=== PATIENT | male | born 1990 | race African-American/Black ===

== ENCOUNTER 2022-09-10 11:10 | Outpatient (CLI) | payer BC, SELFPAY ==
--- NOTE | ~2022-09-10 | MR_ITS ---
EXAMINATION: MR foot LT wo con DATE: 09/10/2022 12:37 INDICATION: Left foot pain and swelling. Fall. TECHNIQUE: Magnetic resonance imaging (MRI) of the left foot was performed without intravenous contra st. COMPARISON: None FINDINGS: There is a nondisplaced oblique fracture of medial malleolus. The superficial component of deltoid ligament is intact. The deep component of deltoid ligament demonstrates edema. There are jorgensen ges of lateral ankle sprain characterized by thickening and increased signal involving the anterior t alofibular ligament, calcaneofibular ligament, and anterior tibiofibular ligament. Posterior talofibu lar ligament and posterior tibiofibular ligaments are normal. There is a stable osteochondral lesion of lateral talar dome characterized by subchondral edema. There is a fracture involving lateral proce ss of talus. The musculature is normal. There is mild Achilles tendinopathy. The medial, lateral, and anterior ankle tendons are normal. Lisfranc ligament is normal. The plantar fascia is normal. There is dorsal subcutaneous edema in the foot. There is subcutaneous edema about the ankle. IMPRESSION: 1. Nondisplaced oblique fracture of medial malleolus. 2. Fracture of lateral process of talus. 3. Changes of ankle sprain. 4. Stable osteochondral lesion of lateral talar dome. Reviewed, dictated and finalized at location A. [employer]
== END 2022-09-10 11:11 ==
PROVIDERS: PCP Physician Assistant; Visit Provider Physician Assistant
DX: S92.812A Other fracture of left foot, initial encounter for closed fracture (principal); S92.142A Displaced dome fracture of left talus, initial encounter for closed fracture; S93.402A Sprain of unspecified ligament of left ankle, initial encounter; M79.672 Pain in left foot
CPT/HCPCS: 73718